=== PATIENT | male | born 1965 | race Caucasian/White ===

== ENCOUNTER 2017-06-20 04:44 | Emergency (ER) | payer OTHER ==
[~2017-06-20] VITALS: Ht 188 cm; Wt 118.2 kg
[2017-06-20] MEDS ORDERED: CLINDAMYCIN 300 MG CAPSULE PO ONE (05:30)
[2017-06-20 05:44] VITALS: BP 142/98
== END 2017-06-20 06:05 | disposition home or self-care (01) ==
LOC: ED 05:57
DX: K08.89 Other specified disorders of teeth and supporting structures (principal)
CPT/HCPCS: 99283

== ENCOUNTER 2017-10-05 11:01 | Emergency (ER) | payer OTHER ==
[~2017-10-05] VITALS: Ht 188 cm; Wt 113.0 kg
[2017-10-05 11:04] VITALS: BP 146/94
[2017-10-05] MEDS ORDERED: KETOROLAC 30 MG/1 ML ONE (11:53)
[2017-10-05] MEDS ORDERED: KETOROLAC 30 MG/1 ML IM ONE (12:00)
== END 2017-10-05 13:27 | disposition home or self-care (01) ==
LOC: ED 13:21
DX: S23.3XXA Sprain of ligaments of thoracic spine, initial encounter (principal); I10 Essential (primary) hypertension; X58.XXXA Exposure to other specified factors, initial encounter; Y93.89 Activity, other specified; Y92.89 Other specified places as the place of occurrence of the external cause; Y99.9 Unspecified external cause status
CPT/HCPCS: 72072; 99284; J1885